=== PATIENT | male | born 1985 | race Caucasian/White ===

== ENCOUNTER → 2016-07-03 | Outpatient (CLI) | payer BC ==
[2016-07-03 14:10] LABS: COLLECTION PROBLEM NO; DAYS OF ABSTINENCE 4; METHOD OF COLLECTION MASTURBATION; SEMEN TIME OF COLLECTION 1300; TRANSPORT PROBLEM NO; TYPE OF SPECIMEN CONTAINER STERILE CUP
[2016-07-03 14:11] LABS: SEMEN COLOR GRAY OR GRAY-WHITE (GRY/GRYWHTE); SEMEN LIQUEFACTION COMPLETE 1400
[2016-07-03 14:31] LABS: SPERM VIABILITY STAIN NOT INDICATED % (>58%)
== END | disposition home or self-care (01) ==
LOC: C.LAB 13:51
PROVIDERS: ATTEND Obstetrics & Gynecology
DX: Z31.41 Encounter for fertility testing (principal)